=== PATIENT | female | born 1935 | race Caucasian/White ===

== ENCOUNTER 2016-11-24 05:42 | Inpatient (IN) | payer MEDICARE, OTHER ==
[2016-11-21 13:03] LABS: BASOPHILS 0.3 %; BASOPHILS ABSOLUTE 0.03 10/3/uL (0.0-0.16); EOSINOPHILS 1.6 %; EOSINOPHILS ABSOLUTE 0.14 10/3/uL (0.0-0.53); HEMATOCRIT 41.2 % (36.0-48.0); HEMOGLOBIN 13.7 g/dL (12.0-16.0); IMMATURE GRANULOCYTES 0.3 %; IMMATURE GRANULOCYTES ABSOLUTE 0.03 10/3/uL (0.0-0.11); LYMPHOCYTES 28.2 %; LYMPHOCYTES ABSOLUTE 2.45 10/3/uL (0.67-4.30); MEAN CORPUSCULAR HEMOGLOB 31.9 pg (26.0-34.0); MEAN PLATELET VOLUME 10.5 fL (9.2-13.0); MONOCYTES 8.3 %; MONOCYTES ABSOLUTE 0.72 10/3/uL (0.21-1.20); NEUTROPHILS 61.3 %; NEUTROPHILS ABSOLUTE 5.31 10/3/uL (2.02-8.40); PLATELET COUNT 289 10/3/uL (150-400); WHITE BLOOD CELLS 8.7 10/3/uL (4.5-10.5)
[2016-11-21 13:04] LABS: MANUAL DIFF NO %; MEAN CORPUS HGB CONC 33.3 g/dL (32.0-36.0); MEAN CORPUSCULAR VOLUME 95.8 fL (80-100)
[2016-11-21 13:11] LABS: INTERNATIONAL NORMAL RATI 1.1 UNITS (-); PARTIAL THROMBO TIME 27.3 SEC (22.5-37.2); PROTIME (NOT ORD) 14.5 SEC (12.0-14.5)
[2016-11-21 13:21] LABS: A/G RATIO 1.1 (0.7-1.9); ALBUMIN 3.8 G/DL (3.5-5.0); ALKALINE PHOSPHATASE 94 U/L (45-117); BUN (BLOOD UREA NITROGEN) 14 MG/DL (6-23); CALCIUM, SERUM 9.4 MG/DL (8.5-10.4); CHLORIDE, SERUM 101 MMOL/L (96-112); CO2 (CARBON DIOXIDE) 27 MMOL/L (24-34); CREATININE 0.91 MG/DL (0.55-1.02); GFR AFRICAN AMERICAN 70 ML/MIN (>=60); GFR NON AFRICAN AMERICAN 60 ML/MIN (>=60); GLOBULIN 3.6 G/DL (2.5-4.1); GLUCOSE, SERUM 91 MG/DL (60-99); POTASSIUM, SERUM 4.5 MMOL/L (3.5-5.3); SGOT(AST) 27 U/L (5-40); SGPT(ALT) 30 U/L (5-65); SODIUM, SERUM 141 MMOL/L (135-148); TOTAL BILIRUBIN 0.8 MG/DL (0-1.2); TOTAL PROTEIN 7.4 G/DL (6.0-8.5)
--- NOTE | ~2016-11-24 | DS ---
Discharge Summary [id number] [place]. [address] NAME: MISSY WILKINS : 37 STATUS : DIS IN PAT#: [id number] AGE: 81 ADM/REG DATE : 11/24/16 MR#: [id number] REPORT SERV DATE: 12/08/16 DICTATED BY: JO CONN III DATE: 12/07/16 REPORT STATUS : Draft TRANSCRIBED BY: ADAN DATE: 12/07/16 Data Collection from hospitalization DISCHARGE DIAGNOSES: 1. Duodenal and neuroendocrine tumor. 2. Hypertension. 3. Type 2 diabetes mellitus. 4. History of hypothyroidism. 5. History of obstructive sleep apnea. CONSULTATIONS: None. PROCEDURES PERFORMED: Distal gastrectomy with resection of the first portion of the duodenum with Billroth II, gastrojejunostomy on 11/24/2016. 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 DISCHARGE MEDICATIONS: Ventolin two puffs via inhaler every six hours as needed, aspirin 81 mg daily, vitamin D3 of 1000 units daily, vitamin B12 of 1000 mcg sublingually daily, hydrochlorothiazide 25 mg daily, Synthroid 112 mcg every morning, Prinivil 20 mg every morning, Mag-Ox 400 mg every day at bedtime, Glucophage 500 mg with breakfast and supper, Prilosec 20 mg every morning, Percocet 7.5/325 one tablet three times a day as needed, MiraLAX powder one packet as needed, Pravachol 40 mg at bedtime, and Isoptin SR 180 mg every day at bedtime. CONDITION AT DISCHARGE: Stable. DISPOSITION: The patient was discharged home on a low-cholesterol, 1800-calorie diabetic soft diet with no concentrated carbohydrates and activities as instructed. She will follow up with me on 12/14/2016. HOSPITAL COURSE: This is a 81-year-old female who was recently found to have a 2 to 3 cm neuroendocrine tumor located in the first portion of the duodenum. It was felt a partial distal gastrectomy to include this portion of the duodenum was indicated as treatment for this neoplasm. Treatment options were discussed and it was elected to proceed with surgical intervention. She was admitted to the hospital at this time for further evaluation and treatment. Upon admission, she was taken to the operating room where she underwent the above-mentioned procedure. She tolerated this well. There were no complications. On postop day #1, she had no new complaints. She was alert and comfortable. She was going to be transferred to the floor. Her Bethea catheter was in place. She was doing well with the epidural. She had good pain control. On postop day #2, she was alert and comfortable. She continued to have good pain control. The Bethea catheter had been left in place. On 11/27/2016, she had no new complaints. She remained afebrile. The NG tube was removed. The epidural catheter was discontinued. The tip was intact. The Bethea catheter was also removed. She was evaluated by Physical Therapy. Discharge Summary [address] [address] NAME: MISSY WILKINS : 37 STATUS : DIS IN PAT#: [id number] AGE: 81 ADM/REG DATE : 11/24/16 MR#: [id number] REPORT SERV DATE: 12/08/16 DICTATED BY: JO CONN III DATE: 12/07/16 REPORT STATUS : Draft TRANSCRIBED BY: ADAN DATE: 12/07/16 On 11/28/2016, her abdomen was soft. She did have some incisional pain. Clear liquids were started. Over the next couple of days, she continued to have some incisional pain. Her IV fluids were discontinued. She was started on full liquids. She was eating well without nausea or vomiting. Discharge planning was performed. On 12/01/2016, she was wanting to go home since there was no rehab bed available. Her abdomen remained soft. Discharge instructions were given. Due to her improved and stable condition, she was discharged home with the above-stated instructions. Information collected by: Mariah Vásquez I submit the above information as my discharge summary. RANDALL/ADAN Jo Conn III, M.D. / [id number] CC: Mark Stotu III
--- NOTE | ~2016-11-24 | OP ---
Record Of Operation [facility] [address] [place]. [address] NAME: MISSY WILKINS : 39 STATUS : ADM IN [facility]#: [id number] AGE: 81 ADM/REG DATE : 11/24/16 MR#: [id number] REPORT SERV DATE: 11/26/16 DICTATED BY: JO CONN III DATE: 11/26/16 REPORT STATUS : Draft TRANSCRIBED BY: MODL DATE: 11/26/16 DATE OF PROCEDURE: 11/24/2016 PREOPERATIVE DIAGNOSIS: Duodenal and neuroendocrine tumor. POSTOPERATIVE DIAGNOSIS: Duodenal and neuroendocrine tumor. PROCEDURE: Distal gastrectomy with resection of the first portion of duodenum with Billroth 2 gastrojejunostomy. SURGEON: Jo Conn M.D. ANESTHESIA: General with intubation. COMPLICATIONS: None. ESTIMATED BLOOD LOSS: 25 mL. SPECIMENS: Distal stomach and proximal duodenum including neuroendocrine tumor with clear margins. LAP AND SPONGE COUNT: Correct x3. DRAINS: Jerome-Abbott in abdominal cavity and Harish in subcutaneous tissue. BRIEF HISTORY: This 81-year-old female recently was found to have a 2 cm to 3 cm neuroendocrine tumor located in the first portion of the duodenum. It was felt that a partial distal gastrectomy to include this portion of the duodenal was indicated as treatment for this neoplasm. This procedure, the risks, benefits, and alternatives, including not limited to the risk for bleeding, infection, enterotomy, injury to any abdominal structure, postop small-bowel obstruction, ileus, incisional hernia, dehiscence, anastomotic leak, requiring reoperation and resulting in peritonitis, sepsis, and , duodenal stump leak, gastric outlet obstruction, gastroparesis, and unforeseen complications including deep venous thrombosis, pulmonary embolus, myocardial infarction, stroke, pneumonia, and , were fully and completely explained to the patient and family prior to surgery. The fact that this was a major operation with risk for major morbidity and mortality was explained. The expected length of recovery was explained. The patient had questions which were answered. She understood the risks and agreed to the surgery as planned. DESCRIPTION OF PROCEDURE: After being appropriately identified and after discussing the risks of surgery with the patient and family again in the preoperative area, she was taken to the operating room and placed in the supine position on the operating room table. General anesthesia was administered. She was intubated without difficulty. A Bethea catheter and NG tube were inserted. The abdomen was prepped and draped sterilely in the usual fashion. After an appropriate "time-out" per [facility] standards, a midline incision was Record Of Operation [address] [address] NAME: MISSY WILKINS : 37 STATUS : ADM IN PAT#: [id number] AGE: 81 ADM/REG DATE : 11/24/16 MR#: [id number] REPORT SERV DATE: 11/26/16 DICTATED BY: JO CONN III DATE: 11/26/16 REPORT STATUS : Draft TRANSCRIBED BY: MODL DATE: 11/26/16 made from just beneath the xiphoid process towards the umbilicus. The incision was continued through the subcutaneous tissue. Hemostasis was controlled with cautery. The incision was continued through the fascia. The abdominal cavity was entered. The abdomen was explored. There was no evidence for carcinomatosis or peritoneal implants. The liver appeared to be normal. The gastrocolic ligament was then divided beginning at the mid body of the stomach and continuing distally to beyond the pylorus. This was done using the Harmonic scalpel. The corresponding area on the lesser curve of the stomach was also exposed by dividing the corresponding lesser omentum. The pylorus was identified. There was a palpable tumor just beyond the pylorus. A Donald maneuver was performed by dividing the peritoneal reflection to the second and third portions of the duodenum and mobilized the duodenum medially. We selected a point for division of the distal stomach several centimeters above the pylorus. A OLIVERIO stapler was used to divide the stomach at this point. We then selected a point for division of the duodenum just beyond the duodenum above and distal to the palpable tumor. The duodenum was divided with a TA stapler. The duodenal stump was oversewn with interrupted 3-0 silk sutures. The specimen was thus removed and sent to pathology and interpreted as containing the tumor with clear margins. We then performed an end [id number] jejunal anastomosis. The proximal jejunum just beyond the ligament of Treitz was identified. This was brought through a window in the avascular portion of the mesentery to the transverse colon. The anastomosis was then performed an end [id number] jejunum in a two layer fashion. The posterior outer layer of the anastomosis was completed with interrupted 3-0 silk sutures. The inner layer of the anastomosis was completed with a running 3-0 chromic suture and the outer anterior layer of the anastomosis was completed with interrupted 3-0 silk sutures. Upon completion of this, the anastomosis was widely patent to palpation. It was not twisted or kinked in anyway and was not under any tension. The anastomosis was secured to the transverse colon mesentery with several 3-0 silk sutures. The NG tube was positioned just proximal to the anastomosis. The area was irrigated copiously with saline. Hemostasis was assured. Evicel glue was placed on the duodenal stump. A Jerome-Abbott drain was brought through a separate stab wound and placed in the right upper quadrant near the duodenal stump. Hemostasis was assured. The fascia was closed with a running looped #1 PDS suture. The subcutaneous tissue was closed with running 3-0 chromic suture over a Harish drain, which was brought out through the inferior aspect of the incision. The skin was closed with running subcuticular 4-0 Monocryl stitch. Dressings were applied, anesthesia was reversed, and the patient was taken to the recovery room in stable condition. She tolerated the procedure well. Her family was informed of the results of surgery. The patient will remain in the hospital for postoperative care. [facility] Record Of [address] [address] NAME: MISSY WILKINS : 39 STATUS : ADM IN [facility]#: [id number] AGE: 81 ADM/REG DATE : 11/24/16 MR#: [id number] REPORT SERV DATE: 11/26/16 DICTATED BY: JO CONN III DATE: 11/26/16 REPORT STATUS : Draft TRANSCRIBED BY: MODErica DATE: 11/26/16 Jo Conn III, M.D. / [id number] CC: Mark Stout III, CARLTON Gregory Olds, MD
[~2016-11-24 05:42] MED LIST: ASAB PO; CEFT2 PO; GLUCPH PO; HYDROCHLOROT25 MG PO; ISOPTIN SR180 MG PO; MAGOX4 PO; MIRALAX POWDER1 PKT PO; PRAVACHOL40 MG PO; PRILO PO; PRIN20 PO; SYN112 PO; VENTOLIN HFA INH; VITAMIN B-121000 MC1 SL; VITAMIN D31000 UNIT PO
[2016-11-25 04:39] LABS: BASOPHILS 0.1 %; BASOPHILS ABSOLUTE 0.01 10/3/uL (0.0-0.16); EOSINOPHILS 0 %; HEMOGLOBIN 12.2 g/dL (12.0-16.0); IMMATURE GRANULOCYTES 0.2 %; IMMATURE GRANULOCYTES ABSOLUTE 0.04 10/3/uL (0.0-0.11); LYMPHOCYTES 5.5 %; MEAN CORPUS HGB CONC 33.6 g/dL (32.0-36.0); MEAN CORPUSCULAR HEMOGLOB 31.2 pg (26.0-34.0); MEAN PLATELET VOLUME 10.5 fL (9.2-13.0); MONOCYTES 11.6 %; MONOCYTES ABSOLUTE 1.92 10/3/uL (0.21-1.20); NEUTROPHILS 82.6 %; NEUTROPHILS ABSOLUTE 13.62 10/3/uL (2.02-8.40); PLATELET COUNT 255 10/3/uL (150-400); RBC DISTRIBUTION WIDTH 13.1 % (12.0-16.0); RED CELL COUNT 3.91 10/6/uL (4.0-5.6)
[2016-11-25 04:51] LABS: HEMATOCRIT 36.3 % (36.0-48.0); MANUAL DIFF NO %; MEAN CORPUSCULAR VOLUME 92.8 fL (80-100); WHITE BLOOD CELLS 16.5 10/3/uL (4.5-10.5)
[2016-11-25 04:59] LABS: BUN (BLOOD UREA NITROGEN) 13 MG/DL (6-23); CALCIUM, SERUM 8.5 MG/DL (8.5-10.4); CHLORIDE, SERUM 105 MMOL/L (96-112); CO2 (CARBON DIOXIDE) 26 MMOL/L (24-34); GFR AFRICAN AMERICAN 81 ML/MIN (>=60); GFR NON AFRICAN AMERICAN 70 ML/MIN (>=60); POTASSIUM, SERUM 4.4 MMOL/L (3.5-5.3); SGOT(AST) 27 U/L (5-40); SGPT(ALT) 25 U/L (5-65); SODIUM, SERUM 140 MMOL/L (135-148); TOTAL PROTEIN 6.2 G/DL (6.0-8.5)
[2016-11-25 05:02] LABS: A/G RATIO 0.8 (0.7-1.9); ALBUMIN 2.7 G/DL (3.5-5.0); ALKALINE PHOSPHATASE 71 U/L (45-117); GLOBULIN 3.5 G/DL (2.5-4.1); GLUCOSE, SERUM 172 MG/DL (60-99); TOTAL BILIRUBIN 0.3 MG/DL (0-1.2)
[2016-11-26 06:57] LABS: BASOPHILS 0.1 %; BASOPHILS ABSOLUTE 0.02 10/3/uL (0.0-0.16); EOSINOPHILS 0.2 %; EOSINOPHILS ABSOLUTE 0.03 10/3/uL (0.0-0.53); HEMOGLOBIN 13.5 g/dL (12.0-16.0); IMMATURE GRANULOCYTES 0.2 %; IMMATURE GRANULOCYTES ABSOLUTE 0.03 10/3/uL (0.0-0.11); LYMPHOCYTES 13.1 %; LYMPHOCYTES ABSOLUTE 1.93 10/3/uL (0.67-4.30); MEAN CORPUSCULAR HEMOGLOB 32.1 pg (26.0-34.0); MEAN PLATELET VOLUME 11.3 fL (9.2-13.0); MONOCYTES 12.3 %; MONOCYTES ABSOLUTE 1.82 10/3/uL (0.21-1.20); NEUTROPHILS 74.1 %; NEUTROPHILS ABSOLUTE 10.92 10/3/uL (2.02-8.40); PLATELET COUNT 260 10/3/uL (150-400); RBC DISTRIBUTION WIDTH 13.4 % (12.0-16.0); RED CELL COUNT 4.21 10/6/uL (4.0-5.6); WHITE BLOOD CELLS 14.8 10/3/uL (4.5-10.5)
[2016-11-26 06:58] LABS: HEMATOCRIT 40.9 % (36.0-48.0); MANUAL DIFF NO %; MEAN CORPUSCULAR VOLUME 97.1 fL (80-100)
[2016-11-26 07:08] LABS: BUN (BLOOD UREA NITROGEN) 9 MG/DL (6-23); CALCIUM, SERUM 8.8 MG/DL (8.5-10.4); CHLORIDE, SERUM 102 MMOL/L (96-112); CO2 (CARBON DIOXIDE) 24 MMOL/L (24-34); CREATININE 0.76 MG/DL (0.55-1.02); GFR AFRICAN AMERICAN 86 ML/MIN (>=60); GFR NON AFRICAN AMERICAN 75 ML/MIN (>=60); GLUCOSE, SERUM 130 MG/DL (60-99); POTASSIUM, SERUM 4.6 MMOL/L (3.5-5.3); SODIUM, SERUM 136 MMOL/L (135-148)
[2016-11-27 05:31] LABS: BASOPHILS 0.2 %; BASOPHILS ABSOLUTE 0.03 10/3/uL (0.0-0.16); EOSINOPHILS 1.4 %; EOSINOPHILS ABSOLUTE 0.17 10/3/uL (0.0-0.53); HEMOGLOBIN 12.3 g/dL (12.0-16.0); IMMATURE GRANULOCYTES 0.2 %; IMMATURE GRANULOCYTES ABSOLUTE 0.03 10/3/uL (0.0-0.11); LYMPHOCYTES 15.4 %; LYMPHOCYTES ABSOLUTE 1.91 10/3/uL (0.67-4.30); MEAN CORPUS HGB CONC 34.2 g/dL (32.0-36.0); MEAN CORPUSCULAR HEMOGLOB 32.6 pg (26.0-34.0); MEAN CORPUSCULAR VOLUME 95.5 fL (80-100); MEAN PLATELET VOLUME 10.9 fL (9.2-13.0); MONOCYTES 13.9 %; MONOCYTES ABSOLUTE 1.73 10/3/uL (0.21-1.20); NEUTROPHILS 68.9 %; NEUTROPHILS ABSOLUTE 8.55 10/3/uL (2.02-8.40); PLATELET COUNT 237 10/3/uL (150-400); RBC DISTRIBUTION WIDTH 13.1 % (12.0-16.0); RED CELL COUNT 3.77 10/6/uL (4.0-5.6); WHITE BLOOD CELLS 12.4 10/3/uL (4.5-10.5)
[2016-11-27 05:32] LABS: MANUAL DIFF NO %
[2016-11-27 05:54] LABS: BUN (BLOOD UREA NITROGEN) 6 MG/DL (6-23); CALCIUM, SERUM 8.4 MG/DL (8.5-10.4); CHLORIDE, SERUM 102 MMOL/L (96-112); CO2 (CARBON DIOXIDE) 25 MMOL/L (24-34); CREATININE 0.69 MG/DL (0.55-1.02); GFR AFRICAN AMERICAN 96 ML/MIN (>=60); GFR NON AFRICAN AMERICAN 83 ML/MIN (>=60); GLUCOSE, SERUM 131 MG/DL (60-99); POTASSIUM, SERUM 4.2 MMOL/L (3.5-5.3); SODIUM, SERUM 135 MMOL/L (135-148)
[2016-11-28 08:02] LABS: BASOPHILS 0.2 %; BASOPHILS ABSOLUTE 0.02 10/3/uL (0.0-0.16); EOSINOPHILS 2.2 %; EOSINOPHILS ABSOLUTE 0.23 10/3/uL (0.0-0.53); HEMATOCRIT 35.9 % (36.0-48.0); HEMOGLOBIN 12.2 g/dL (12.0-16.0); IMMATURE GRANULOCYTES 0.4 %; IMMATURE GRANULOCYTES ABSOLUTE 0.04 10/3/uL (0.0-0.11); LYMPHOCYTES ABSOLUTE 1.14 10/3/uL (0.67-4.30); MEAN CORPUSCULAR HEMOGLOB 32.4 pg (26.0-34.0); MEAN CORPUSCULAR VOLUME 95.5 fL (80-100); MONOCYTES 12.4 %; MONOCYTES ABSOLUTE 1.28 10/3/uL (0.21-1.20); NEUTROPHILS 73.8 %; NEUTROPHILS ABSOLUTE 7.62 10/3/uL (2.02-8.40); PLATELET COUNT 255 10/3/uL (150-400); RBC DISTRIBUTION WIDTH 12.9 % (12.0-16.0); RED CELL COUNT 3.76 10/6/uL (4.0-5.6); WHITE BLOOD CELLS 10.3 10/3/uL (4.5-10.5)
[2016-11-28 08:10] LABS: MANUAL DIFF NO %
[2016-11-28 08:15] LABS: BUN (BLOOD UREA NITROGEN) 4 MG/DL (6-23); CALCIUM, SERUM 8.9 MG/DL (8.5-10.4); CHLORIDE, SERUM 101 MMOL/L (96-112); CO2 (CARBON DIOXIDE) 27 MMOL/L (24-34); CREATININE 0.69 MG/DL (0.55-1.02); GFR AFRICAN AMERICAN 96 ML/MIN (>=60); GFR NON AFRICAN AMERICAN 83 ML/MIN (>=60); GLUCOSE, SERUM 126 MG/DL (60-99); POTASSIUM, SERUM 4.2 MMOL/L (3.5-5.3); SODIUM, SERUM 135 MMOL/L (135-148)
[2016-11-29 06:44] LABS: BASOPHILS 0.2 %; BASOPHILS ABSOLUTE 0.01 10/3/uL (0.0-0.16); EOSINOPHILS 2.9 %; EOSINOPHILS ABSOLUTE 0.19 10/3/uL (0.0-0.53); HEMATOCRIT 36.1 % (36.0-48.0); HEMOGLOBIN 12.3 g/dL (12.0-16.0); IMMATURE GRANULOCYTES 0.3 %; IMMATURE GRANULOCYTES ABSOLUTE 0.02 10/3/uL (0.0-0.11); LYMPHOCYTES 17.7 %; LYMPHOCYTES ABSOLUTE 1.16 10/3/uL (0.67-4.30); MEAN CORPUS HGB CONC 34.1 g/dL (32.0-36.0); MEAN PLATELET VOLUME 10.2 fL (9.2-13.0); MONOCYTES 14.5 %; MONOCYTES ABSOLUTE 0.95 10/3/uL (0.21-1.20); NEUTROPHILS 64.4 %; NEUTROPHILS ABSOLUTE 4.21 10/3/uL (2.02-8.40); PLATELET COUNT 281 10/3/uL (150-400); RED CELL COUNT 3.84 10/6/uL (4.0-5.6); WHITE BLOOD CELLS 6.5 10/3/uL (4.5-10.5)
[2016-11-29 06:45] LABS: MANUAL DIFF NO %
[2016-11-29 06:55] LABS: BUN (BLOOD UREA NITROGEN) 3 MG/DL (6-23); CALCIUM, SERUM 8.6 MG/DL (8.5-10.4); CHLORIDE, SERUM 102 MMOL/L (96-112); CO2 (CARBON DIOXIDE) 27 MMOL/L (24-34); CREATININE 0.72 MG/DL (0.55-1.02); GFR AFRICAN AMERICAN 92 ML/MIN (>=60); GFR NON AFRICAN AMERICAN 80 ML/MIN (>=60); GLUCOSE, SERUM 129 MG/DL (60-99); POTASSIUM, SERUM 4.2 MMOL/L (3.5-5.3); SODIUM, SERUM 137 MMOL/L (135-148)
[2016-11-30 06:09] LABS: BASOPHILS 0.1 %; BASOPHILS ABSOLUTE 0.01 10/3/uL (0.0-0.16); EOSINOPHILS 5.5 %; EOSINOPHILS ABSOLUTE 0.37 10/3/uL (0.0-0.53); HEMATOCRIT 34.4 % (36.0-48.0); HEMOGLOBIN 11.6 g/dL (12.0-16.0); IMMATURE GRANULOCYTES 0.6 %; IMMATURE GRANULOCYTES ABSOLUTE 0.04 10/3/uL (0.0-0.11); LYMPHOCYTES ABSOLUTE 1.62 10/3/uL (0.67-4.30); MEAN CORPUS HGB CONC 33.7 g/dL (32.0-36.0); MEAN CORPUSCULAR HEMOGLOB 31.9 pg (26.0-34.0); MEAN CORPUSCULAR VOLUME 94.5 fL (80-100); MEAN PLATELET VOLUME 9.9 fL (9.2-13.0); MONOCYTES 17.9 %; MONOCYTES ABSOLUTE 1.21 10/3/uL (0.21-1.20); NEUTROPHILS 51.9 %; NEUTROPHILS ABSOLUTE 3.51 10/3/uL (2.02-8.40); PLATELET COUNT 292 10/3/uL (150-400); RBC DISTRIBUTION WIDTH 13.2 % (12.0-16.0); RED CELL COUNT 3.64 10/6/uL (4.0-5.6); WHITE BLOOD CELLS 6.8 10/3/uL (4.5-10.5)
[2016-11-30 06:10] LABS: MANUAL DIFF NO %
[2016-11-30 06:16] LABS: BUN (BLOOD UREA NITROGEN) 6 MG/DL (6-23); CALCIUM, SERUM 8.7 MG/DL (8.5-10.4); CHLORIDE, SERUM 103 MMOL/L (96-112); CO2 (CARBON DIOXIDE) 28 MMOL/L (24-34); CREATININE 0.71 MG/DL (0.55-1.02); GFR AFRICAN AMERICAN 94 ML/MIN (>=60); GFR NON AFRICAN AMERICAN 81 ML/MIN (>=60); GLUCOSE, SERUM 107 MG/DL (60-99); POTASSIUM, SERUM 4.3 MMOL/L (3.5-5.3); SODIUM, SERUM 139 MMOL/L (135-148)
[2016-12-01] MEDS ORDERED: PERCOCET 7.5/321 TAB PO (08:50)
== END 2016-12-01 12:00 | disposition home or self-care (01) | DRG 828 ==
LOC: SDC/OF 05:42 → PACU 10:04 → MIC 17:58 → 5SO 11-25 17:20
PROVIDERS: Surgery
PROC: 0DT70ZZ Resection of Stomach, Pylorus, Open Approach (ICD-10-PCS; 2016-11-24)
PROC: 0D160ZA Bypass Stomach to Jejunum, Open Approach (ICD-10-PCS; 2016-11-24)
PROC: 0DB60ZZ Excision of Stomach, Open Approach (ICD-10-PCS; principal; 2016-11-24 07:45)
DX: C7A.8 Other malignant neuroendocrine tumors (principal); J84.10 Pulmonary fibrosis, unspecified; E11.9 Type 2 diabetes mellitus without complications; I10 Essential (primary) hypertension; E03.9 Hypothyroidism, unspecified; G47.33 Obstructive sleep apnea (adult) (pediatric); Z79.899 Other long term (current) drug therapy; Z90.2 Acquired absence of lung [part of]; M19.90 Unspecified osteoarthritis, unspecified site; Z79.84 Long term (current) use of oral hypoglycemic drugs; D25.9 Leiomyoma of uterus, unspecified; K80.20 Calculus of gallbladder without cholecystitis without obstruction
CPT/HCPCS: 36415; 71010; 71020; 71260; 74177; 80048; 80053; 82962; 85025; 85610; 85730; 86850; 86870; 86900; 86901; 86920; 86922; 87641; 88309; 88341; 88342; 88360; 93005; 97116-GP; 97161-GP; A9270-GY; C9113; G8978-CK-GP; G8979-CJ-GP; J0690; J1170; J2250; J2370; J2405; J2710; J2765; J3010; Q9967